=== PATIENT | male | born 1990 | race American Indian/Alaskan Native ===

== ENCOUNTER 2017-09-15 12:43 | Emergency (ER) | payer OTHER ==
[2017-09-15] MEDS ORDERED: PEPCID PO ONE (13:41)
[2017-09-15] MEDS ORDERED: ZOFRAN ODT PO ONE (13:41)
[2017-09-15] MEDS ORDERED: NACL 0.9% 1000 ML 1,000 ML IV ONE (14:30)
--- NOTE | 2017-09-15 14:37 | Emergency Department Report ---
Blank Doc - Documentation Documentation: Patient is a 27-year-old black male who states that he woke up this morning with intense pain in the epigastrium. Patient has been nauseous and vomited twice as well. Patient denies any diarrhea fever. Focused physical exam patient does have exquisite tenderness in the epigastrium. Patient has a history of ulcers x-ray been taken to rule out perforation. A review of the patient's x-ray there was some distended colon in the left upper quadrant is present. Denied. Be any gas in the patient's rectum. Patient be sent for CT for further evaluation.
--- NOTE | 2017-09-15 14:41 | XRay Report ---
FINAL REPORT EXAM: XR ABD SERIES W CXR 1V HISTORY: epigastric pain TECHNIQUE: Frontal chest x-ray. Supine and upright views of abdomen. PRIORS: None. FINDINGS: Chest: No evidence of acute cardiopulmonary disease. Abdomen: Nonspecific bowel gas pattern, including some prominent and gas-filled bowel loops projected in left upper quadrant, without features suggestive of mechanical obstruction. No apparent pneumoperitoneum. No abnormal calcifications. Osseous structures grossly unremarkable. IMPRESSION: 1. Nonspecific bowel gas pattern, which may represent adynamic ileus. Followup may be warranted.
[2017-09-15 15:24] LABS: Basophils % (Auto) 0.4 % (0.0-1.8); Eosinophils # (Auto) 0.1 K/mm3 (0.0-0.4); Eosinophils % (Auto) 1.2 % (0.0-4.3); Lymphocytes # (Auto) 2.5 K/mm3 (1.2-5.4); Lymphocytes % (Auto) 25.2 % (13.4-35.0); Mean Corpuscular HGB Conc 33 % (32-34); Monocytes # (Auto) 0.4 K/mm3 (0.0-0.8); Monocytes % (Auto) 4.2 % (0.0-7.3); Platelet Count 216 K/mm3 (140-440); Red Blood Count 6.01 M/mm3 (3.65-5.03); Red Cell Distribution Width 16.2 % (13.2-15.2)
[2017-09-15 15:25] LABS: Mean Corpuscular Hemoglobin 23 pg (28-32); Mean Corpuscular Volume 70 fl (84-94)
[2017-09-15 15:27] LABS: Alanine Aminotransferase 22 units/L (7-56); Albumin 4.7 g/dL (3.9-5); BUN/Creatinine Ratio 14; Blood Urea Nitrogen 14 mg/dL (9-20); Calcium 9.5 mg/dL (8.4-10.2); Hemolysis Index 1
[2017-09-15 15:41] LABS: Lipase 1054 units/L (13-60)
--- NOTE | 2017-09-15 16:48 | Cat Scan Report ---
FINAL REPORT EXAM: CT ABDOMEN PELVIS W CON HISTORY: dilated bowel on XR, epigastric abd pain COMPARISON: Radiograph of the abdomen performed on 09/15/2017 TECHNIQUE: Multiple contiguous axial images were obtained from the lung bases to the pubic symphysis after administration of IV contrast. Reformatted sagittal and coronal images were available for review. FINDINGS: Lung bases: Normal. Visualized heart and mediastinum: Normal. Liver: Normal. Spleen: Normal. Pancreas: There is stranding around the tail of the pancreas. There is uniform enhancement of the pancreatic parenchyma. There is no loculated peripancreatic fluid collection. Gallbladder and Biliary Tree: There are several cholesterol gallstones. No pericholecystic fluid or gallbladder wall thickening. Adrenal glands: Normal. Kidneys: Symmetric enhancement to both kidneys. No hydronephrosis. Bladder: Normal. Pelvic organs: Normal prostate gland and seminal vesicles. Bowel: No focal wall thickening. No evidence of obstruction. Mild distension of bowel loops in the left upper quadrant likely eligibility services representative of reactive ileus. Peritoneum: Small amount of free fluid in the left mesentery and the pelvis. No free air. No significant lymphadenopathy. Vasculature: Abdominal aorta is normal in caliber without evidence of aneurysm. Normal appearance of the portal venous system and the inferior vena cava. Bones and soft tissues: No suspicious osseous lesions. No acute fracture or dislocation. Soft tissues are normal. IMPRESSION: 1. Findings of acute pancreatitis around the pancreatic tail. No evidence for pancreatic necrosis. No loculated peripancreatic fluid collection. 2. Trace free fluid around the pancreatic tail and within the pelvis. 3. Mild distension of bowel loops in the left upper quadrant, likely reactive ileus.
--- NOTE | 2017-09-15 17:28 | Emergency Department Report ---
ED Abdominal Pain HPI - General Chief Complaint: Abdominal Pain Stated Complaint: ABD PAIN Time Seen by Provider: 09/15/17 13:35 Source: patient Mode of arrival: Ambulatory Limitations: No Limitations - History of Present Illness Initial Comments: Patient is a 27-year-old black male who states that he woke up this morning with intense pain in the epigastrium. Patient has been nauseous and vomited twice as well. Patient denies any diarrhea fever. Focused physical exam patient does have exquisite tenderness in the epigastrium. Patient has a history of ulcers x-ray been taken to rule out perforation. Location: epigastric Radiation: none Severity scale (0 -10): 7 Quality: stabbing Consistency: constant Improves With: nothing Worsens With: nothing Associated Symptoms: nausea, vomiting. denies: diarrhea, fever, chills, constipation, dysuria, hematemesis, hematochezia, melena, hematuria, anorexia, syncope - Related Data Previous Rx's Medication Instructions Recorded Last Taken Type HYDROcodone/APAP 5-325 [[place] 1 each PO Q6HR PRN #15 tablet 09/15/17 Unknown Rx 5/325] Ondansetron [Zofran Odt] 4 mg PO Q8HR PRN #10 tab.rapdis 09/15/17 Unknown Rx Allergies Allergy/AdvReac Type Severity Reaction Status Date / Time No Known Allergies Allergy Unverified 09/15/17 12:45 ED Review of Systems ROS: Stated complaint: ABD PAIN Other details as noted in HPI Comment: All other systems reviewed and negative ED Past Medical Hx - Past Medical History Previous Medical History?: Yes Additional medical history: Ulcer. - Surgical History Additional Surgical History: ulcer surgery. - Social History Smoking Status: Current Some Day Smoker Substance Use Type: Alcohol - Medications Home Medications: Home Medications Medication Instructions Recorded Confirmed Last Taken Type HYDROcodone/APAP 5-325 [[place] 1 each PO Q6HR PRN #15 tablet 09/15/17 Unknown Rx 5/325] Ondansetron [Zofran Odt] 4 mg PO Q8HR PRN #10 tab.rapdis 09/15/17 Unknown Rx ED Physical Exam - General Limitations: No Limitations General appearance: alert, in no apparent distress - Head Head exam: Present: atraumatic, normocephalic - Eye Eye exam: Present: normal appearance - ENT ENT exam: Present: mucous membranes moist - Neck Neck exam: Present: normal inspection - Respiratory Respiratory exam: Present: normal lung sounds bilaterally. Absent: respiratory distress, wheezes, rales, rhonchi - Cardiovascular Cardiovascular Exam: Present: regular rate, normal rhythm. Absent: systolic murmur, diastolic murmur, rubs, gallop - GI/Abdominal GI/Abdominal exam: Present: soft, tenderness (epigastric), normal bowel sounds. Absent: distended, guarding, rebound, rigid - Rectal Rectal exam: Present: deferred - Extremities Exam Extremities exam: Present: normal inspection - Back Exam Back exam: Present: normal inspection - Neurological Exam Neurological exam: Present: alert, oriented X3 - Psychiatric Psychiatric exam: Present: normal affect, normal mood - Skin Skin exam: Present: warm, dry, intact, normal color. Absent: rash ED Course Vital Signs 09/15/17 12:45 Temperature 98.3 F ED Medical Decision Making - Lab Data Result diagrams: 09/15/17 15:03 09/15/17 15:03 Labs 09/15/17 09/15/17 15:03 15:03 WBC 9.8 RBC 6.01 H Hgb 14.0 Hct 42.0 MCV 70 L MCH 23 L MCHC 33 RDW 16.2 H Plt Count 216 Lymph % (Auto) 25.2 [place] % (Auto) 4.2 Eos % (Auto) 1.2 Baso % (Auto) 0.4 Lymph # 2.5 [place] # 0.4 Eos # 0.1 Baso # 0.0 Seg Neutrophils % 69.0 Seg Neutrophils # 6.8 Sodium 138 Potassium 4.2 Chloride 98.8 Carbon Dioxide 27 Anion Gap 16 BUN 14 Creatinine 1.0 Estimated GFR > 60 BUN/Creatinine Ratio 14 Glucose 125 H Calcium 9.5 Total Bilirubin 0.60 AST 19 ALT 22 Alkaline Phosphatase 50 Total Protein 8.0 Albumin 4.7 Albumin/Globulin Ratio 1.4 Lipase 1054 H - Radiology Data Patient: WISAM BRENNER MR#: [id number] : 1990 Acct:[id number] Age/Sex: 27 / M ADM Date: 09/15/17 Loc: ED Attending Dr: Ordering Physician: MARI CHEUNG MD Date of Service: 09/15/17 Procedure(s): CT abdomen pelvis w con Accession Number(s): [id number] cc: MARI CHEUNG MD FINAL REPORT EXAM: CT ABDOMEN PELVIS W CON HISTORY: dilated bowel on XR, epigastric abd pain COMPARISON: Radiograph of the abdomen performed on 09/15/2017 TECHNIQUE: Multiple contiguous axial images were obtained from the lung bases to the pubic symphysis after administration of IV contrast. Reformatted sagittal and coronal images were available for review. FINDINGS: Lung bases: Normal. Visualized heart and mediastinum: Normal. Liver: Normal. Spleen: Normal. Pancreas: There is stranding around the tail of the pancreas. There is uniform enhancement of the pancreatic parenchyma. There is no loculated peripancreatic fluid collection. Gallbladder and Biliary Tree: There are several cholesterol gallstones. No pericholecystic fluid or gallbladder wall thickening. Adrenal glands: Normal. Kidneys: Symmetric enhancement to both kidneys. No hydronephrosis. Bladder: Normal. Pelvic organs: Normal prostate gland and seminal vesicles. Bowel: No focal wall thickening. No evidence of obstruction. Mild distension of bowel loops in the left upper quadrant likely volunteer patient representative of reactive ileus. Peritoneum: Small amount of free fluid in the left mesentery and the pelvis. No free air. No significant lymphadenopathy. Vasculature: Abdominal aorta is normal in caliber without evidence of aneurysm. Normal appearance of the portal venous system and the inferior vena cava. Bones and soft tissues: No suspicious osseous lesions. No acute fracture or dislocation. Soft tissues are normal. IMPRESSION: 1. Findings of acute pancreatitis around the pancreatic tail. No evidence for pancreatic necrosis. No loculated peripancreatic fluid collection. 2. Trace free fluid around the pancreatic tail and within the pelvis. 3. Mild distension of bowel loops in the left upper quadrant, likely reactive ileus. Transcribed By: DANIEL Dictated By: SONU MCKEON MD Electronically Authenticated By: SONU MCKEON MD Signed Date/Time: 09/15/17 [id number] - Medical Decision Making Patient was hydrated and given pain meds which did alleviate the patient's symptoms. Patient is a diagnosis of acute pancreatitis however his levels are slightly elevated. Patient is instructed to do a liquid diet for the next several days. Patient's dad state that he does have heavy alcohol use and patient instructed to stop drinking. Patient voices understanding Critical care attestation.: If time is entered above; I have spent that time in minutes in the direct care of this critically ill patient, excluding procedure time. ED Disposition Clinical Impression: Acute pancreatitis Qualifiers: Pancreatitis type: alcohol induced Acute pancreatitis complication: no infection or necrosis Qualified Code(s): K85.20 - Alcohol induced acute pancreatitis without necrosis or infection Disposition: DC-01 TO HOME OR SELFCARE Is pt being admited?: No Does the pt Need Aspirin: No Condition: Stable Instructions: Pancreatitis (ED) Referrals: JAZLYN HOPSON MD [Staff Physician] - 3-5 Days
== END 2017-09-15 17:54 | disposition home or self-care (01) ==
LOC: ED 12:43
DX: K85.20 Alcohol induced acute pancreatitis without necrosis or infection (principal); F17.200 Nicotine dependence, unspecified, uncomplicated
CPT/HCPCS: 36415; 74022; 74177; 80053; 83690; 85025; 96360; 96361; 99284; J7030; Q9967; Q0162